=== PATIENT | female | born 1975 | race Caucasian/White ===

== ENCOUNTER 2020-09-24 03:52 | Observation (INO) | payer OTHER ==
[~2020-09-24] VITALS: Ht 157.5 cm; Wt 81.6 kg
--- NOTE | ~2020-09-24 | OP ---
[address] [address] OPERATIVE REPORT Name: MEIRMYRNA Nguyen Room: [address] M.R.#: [id number] Admission: 09/24/20 Attend Phys: Beverly Odell MD Discharge: Date of : 75 Report #: [id number] THIS REPORT FOR: cc: DIANE - No family physician/PCP DIANE - No family physician/PCP Blake Whitney MD ~ DOC #: [id number] Blake Whitney MD DATE OF SURGERY: 09/25/2020 PREOPERATIVE DIAGNOSIS: A 4 mm distal right ureteral stone with hydronephrosis. POSTOPERATIVE DIAGNOSIS: A 4 mm distal right ureteral stone with hydronephrosis. PROCEDURE PERFORMED: Cystoscopy, right retrograde pyelogram, right ureteroscopy, holmium laser lithotripsy, ureteroscopic stone extraction, placement of right ureteral stent with attached string. STAFF SURGEON: Blake Whitney MD VARIOUS EXCEPTIONALITIES TEACHER: None. ANESTHESIA: General. ESTIMATED BLOOD LOSS: None. COMPLICATIONS: None. SPECIMENS: Left ureteral stone fragments. DRAINS: A 28 cm x 4.8-Wallisian left ureteral stent. INDICATIONS FOR PROCEDURE: The patient is a pleasant 44-year-old white female who had history of kidney stone in the past, who developed rather severe left flank pain yesterday morning, presented to [facility] where a CT scan documented a 4 mm proximal left ureteral stone, some hydronephrosis. She was admitted for pain control. She did have nausea and vomiting. Denied any fevers, chills, nausea or vomiting. She was still having pain this morning and this afternoon. She has not documented any passing the stone. She was counseled regarding treatment options, elected for definitive cystoscopy, left retrograde pyelogram, left ureteroscopy, possible holmium laser lithotripsy, possible placement of left ureteral stent. After the risks and benefits of the procedure were explained, an informed consent was obtained. DESCRIPTION OF PROCEDURE: The patient was [place] [address] OPERATIVE REPORT Name: MYRNA WORLEY Room: [address]#: [id number] Admission: 09/24/20 Attend Phys: Beverly Odell MD Discharge: Date of : 75 Report #: [id number] comfortably placed in the dorsal lithotomy position under adequate general anesthesia. She was sterilely prepped and draped in standard fashion exposing only the genitalia. She was up to date on antibiotic therapy. Appropriate time-out was carried out and all were in agreement. A 22-Wallisian cystoscope with the obturator in place was blindly inserted into the urethra. Obturator was removed, draining clear ayse colored urine. Bladder was systematically viewed. Both ureteral orifices identified normal. No bladder calculi seen or foreign bodies observed. An 8-Wallisian cone-tipped catheter placed in the left ureteral orifice and retrograde pyelogram showing a normal caliber ureter to about 4 cm up to the ureterovesical junction. There was also some dilation down to this level, some tortuosity in the ureter more proximal. 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 No significant renal pelvis present. An 0.035 Glidewire was placed up to the left ureter at the level of kidney. The cystoscope was removed and a 4.5 Wallisian tapered to a 6.5-Wallisian Goetz semi-rigid ureteroscope advanced through the urethra into the left ureter. I did identify a stone in the distal ureter, grasped the stone with a 2.4 Wallisian flat wire basket, brought down to the ureterovesical junction began to meet resistance, went ahead and dislodged the stone out of the basket, leaving it in place. The basket was extracted, 272 micron holmium laser fiber set at 6.4 cuevas to fragment the stone into three separate fragments. Now these were individually grabbed with a 2.4 Wallisian flat wire basket and sequentially gently removed out without difficulty. Repeat ureteroscopy showed no sign of damage to the ureter. No residual fragments remained in the ureter. The semirigid scope was removed. A 28 cm x 4.8 Wallisian ureteral stent was put in place. Due to not having renal pelvis, coiled the tip of the stent into the compound upper pole calyx and good coil in the bladder. Bladder was drained, cystoscope was removed. String was left attached and secured to the outside of the labia with labia major, did place 20 mL of lidocaine jelly into her bladder. She tolerated the procedure extremely well. She was extubated in the operating room, transferred to [facility] with assistance and went to recovery in stable condition. May remove the stent on Thursday. If she is having trouble, could remove it early this Thursday. We will see her back in our office in 6 weeks with a renal ultrasound. Blake VARGHESE/SHIMON By: [id number] Tra Whitney MD /gema
[~2020-09-24 03:52] MED LIST: NOHOMEMEDICATIONS; VICODIN 5-5001 EACH PO
[2020-09-24 04:00] VITALS: BP 101/69
[2020-09-24 04:33] LABS: URINE BLOOD 3+ (Negative); URINE CLARITY CLOUDY; URINE GLUCOSE-RANDOM NEGATIVE (Negative); URINE KETONES NEGATIVE (Negative); URINE LEUKOCYTES-REFLEX NEGATIVE (Negative); URINE NITRITE-REFLEX NEGATIVE (Negative); URINE PROTEIN 1+ (Negative); URINE SPECIFIC GRAVITY >= 1.030 (1.005-1.030); URINE UROBILINOGEN 0.2 E.U./dl (0.2-1.0)
[2020-09-24 04:36] LABS: URINE BILIRUBIN 1+ (Negative); URINE COLOR AMBER
[2020-09-24 04:40] LABS: ABSOLUTE BASOPHILS 0.1 thou/uL (0.0-0.2); ABSOLUTE EOSINOPHILS 0.1 thou/uL (0.0-0.7); ABSOLUTE LYMPHOCYTES 1.4 thou/uL (0.8-5.3); ABSOLUTE MONOCYTES 0.7 thou/uL (0.0-1.2); ABSOLUTE NEUTROPHILS 8.3 thou/uL (1.6-8.1); BASOPHILS 0.8 %; HEMOGLOBIN 13.2 gm/dL (12.0-15.0); LYMPHOCYTES 13.3 %; MCH 31.1 pg (26.0-34.0); MCHC 34.6 g/dL (28.0-37.0); MCV 89.7 fL (80.0-100.0); MONOCYTES 6.2 %; MPV 8.7 fl. (7.2-11.1); NUCLEATED RBCS 0 /100WBC; PLATELET COUNT* 238 thou/uL (150-400); POLYS 78.7 %; RBC 4.24 mil/uL (4.20-5.00); RDW-CV 13.6 % (10.5-14.5); WBC 10.5 thou/uL (4.0-11.0)
[2020-09-24 04:49] LABS: CALCIUM 8.7 mg/dL (8.5-10.1); POTASSIUM 3.9 mmol/L (3.5-5.1)
[2020-09-24 05:25] LABS: CASTS None Seen /LPF (None Seen); CRYSTALS None Seen /LPF (None Seen); ICTOTEST (BILI CONFIRMATORY) Negative (Negative); MUCUS 4-6 Moderate strn/LPF (None Seen); SQUAMOUS 0-3 Few /LPF (0-3); URINE RBC >20 Many /HPF (0-2); URINE WBC-REFLEX 0-5 Rare /HPF (0-5)
--- NOTE | 2020-09-24 09:17 | NUR ---
PT EATING BREAKFAST.
[2020-09-24 10:06] VITALS: BP 114/74
[2020-09-24 14:14] VITALS: BP 122/75
[2020-09-24 14:30] VITALS: BP 122/75
[2020-09-24 14:50] VITALS: BP 120/71
--- NOTE | 2020-09-24 15:42 | NUR ---
PATIENT TRANSFERED TO FLOOR VIA STRETCHER ACCOMPANIED BY NURSE AND . PATIENT ORIENTED TO ROOM AND FLOOR. ADMISSION DATA BASE DONE. PATIENT STATED THAT SHE WOKE UP LAST NIGHT WITH STABBING PAIN TO ABDOMEN. SHE STATES THAT AT THIS TIME HER PAIN IS 2/10. DISCUSSED PAIN MANAGEMENT AND WHEN TO ASK FOR PAIN MEDICAIONS. VITAL SIGNS WNL. 20G IV TO LEFT AC, SALINE LOCK, PATENT. DRESSING C/D/I. ALL QUESTIONS AND CONCERNS ADDRESSED.
--- NOTE | 2020-09-24 17:37 | NUR ---
PATIENT RESTING IN BED. NO C/O PAIN/DISCOMFORT. CALL LIGHT WITHIN REACH. BED IN LOW/LOCKED POSITON. ALL QUESTIONS AND CONCERNS ADDRESSED.
[2020-09-24 20:00] VITALS: BP 121/86
[2020-09-25 04:28] LABS: CALCIUM 8.4 mg/dL (8.5-10.1); CREATININE 1.7 mg/dL (0.6-1.3); POTASSIUM 3.9 mmol/L (3.5-5.1)
[2020-09-25 04:36] LABS: HEMOGLOBIN 12.7 gm/dL (12.0-15.0); MCH 30.6 pg (26.0-34.0); MCHC 34.4 g/dL (28.0-37.0); MPV 8.5 fl. (7.2-11.1); RBC 4.16 mil/uL (4.20-5.00); RDW-CV 13.8 % (10.5-14.5); WBC 11.3 thou/uL (4.0-11.0)
--- NOTE | 2020-09-25 04:40 | NUR ---
RECEIVING FENTANYL FOR PAIN, NO REPORTS OF ANY NAUSEA. URINE STRAINED ALL SHIFT. SHE IS ALERT AND ORIENTED, ROOM AIR. UROLOGY CONSULTED. SHE HAS BEEN NPO SINCE MIDNIGHT. RECEIVED ALL MEDS SCHEDULED.
[2020-09-25 07:40] VITALS: BP 111/82
--- NOTE | 2020-09-25 12:16 | NUR ---
Pt is A&O. Resides at home with . Independent. No DME. No hx of HH or SNF. Goal is home at dc. Plan cysto and stent placement today. Anticipate dc post surgery. No needs.
--- NOTE | 2020-09-25 18:42 | NUR ---
PATIENT HAS REMAINED A&OX4, PLEASANT AND COOPERATIVE WITH CARES THIS SHIFT. URINE STRAINED PRIOR TO GOING TO PREOP. PATIENT REQUIRED PRN PAIN MEDICATION REGULARLY PRIOR TO SURGERY. PATIENT LEFT UNIT AT APPROX. 1530 TO GO TO PREOP, AND OF THE TIME OF THIS NOTE HAS YET TO RETURN TO UNIT.
--- NOTE | 2020-09-25 19:45 | NUR ---
PT RETURNING TO ROOM PER BED FROM CYSTOSCOPY ACCOMPANIED BY STAFF WITH CHART. PT DENIES PAIN OR PROBLEMS, STATES SHES HUNGRY. PT STATES SHE DOES NOT FEEL COMFORTABLE DISCHARGING HOME WITHOUT KNOWING IF PAIN WILL BE CONTROLLED AND SHE WILL BE ABLE TO TOLERATE FOOD AND DRINK AND VOIDING WITHOUT DIFFICULTY. FAMILY AT BEDSIDE. LAC SL IV. UP WITH ASSIST TO BATHROOM AND VOIDING 400ML PINK URINE. AM LABS ORDERED. CALL LITE IN EASY REACH. DENIES NEEDS AT PRESENT. WILL CONTINUE TO MONITOR AND PROVIDE CARES NEEDED.
[2020-09-25 20:45] VITALS: BP 126/72
[2020-09-26 00:37] VITALS: BP 122/77
[2020-09-26 04:00] VITALS: BP 118/72
[2020-09-26 04:35] LABS: CALCIUM 8.6 mg/dL (8.5-10.1); CREATININE 1.1 mg/dL (0.6-1.3); HEMATOCRIT 37.6 % (37.0-47.0); HEMOGLOBIN 12.9 gm/dL (12.0-15.0); MCH 30.7 pg (26.0-34.0); MCHC 34.3 g/dL (28.0-37.0); MCV 89.3 fL (80.0-100.0); MPV 8.6 fl. (7.2-11.1); POTASSIUM 4.4 mmol/L (3.5-5.1); RBC 4.21 mil/uL (4.20-5.00); RDW-CV 13.7 % (10.5-14.5); WBC 11.6 thou/uL (4.0-11.0)
--- NOTE | 2020-09-26 06:54 | NUR ---
PT SLEPT WELL OVERNIGHT SHE STATES. DENIES NEED FOR PAIN MED OVERNIGHT. TOLERATING HS FOOD BROUGHT IN BY FAMILY WITHOUT N/V. LAC SL. ROOM AIR. UP AD ALICIA IN ROOM. AM LAB. AOX4. ANTICIPATING DISCHARGE HOME TODAY. ABLE TO USE CALL LITE AND MAKE NEEDS KNOWN.
[2020-09-26 08:00] VITALS: BP 119/63; BP 123/53
[2020-09-26] MEDS ORDERED: LEVOFLOXACIN500 MG PO (14:10)
[2020-09-26 14:47] VITALS: BP 119/63
--- NOTE | 2020-09-26 15:05 | NUR ---
PT DISCHARGED HOME WITH ALL BELONGINGS ACCOMPANIED BY SPOUCE. SALINE LOCK REMOVED HUB INTACT. PT HAS GOOD UNDERSTANDING OF DISCHARGE INSTRUCTIONS. PT DISCHARGED HOME. PT DENIES PAIN ON DISCHARGE.
--- NOTE | 2020-09-28 17:07 | PATH ---
[address] [address] PATHOLOGY RPT PROCEDURE Name: LIANNA KAMINSKI Room: [address] Xenia Rod#: [id number] Admission: 09/24/20 Date of : 75 Discharge: 09/26/20 Report #: [id number] Path Case #: [id number] [facility] Accession Number: [id number] . 01 Material submitted: . ureter - LEFT URETERAL STONE. Modifiers: left . 01 Clinical history: . CYSTO W URETEROSCOPY,STONE MANIPULATION,STENT . 02 Diagnosis: Left ureteral stones: - Consistent with calculi. - The specimen is sent out for further processing. Report pending outside analysis with results to follow in an addendum. MBR 09/28/2020 1609 Local . 02 Electronically signed: . Clarke High MD, Pathologist NPI- [id number] . 01 Gross description: . The specimen is received fresh, labeled "Lianna Kaminski, left ureteral stones" are multiple brown stones measuring up to 0.3 cm for gross examination only. The specimen is forwarded to sendouts for further processing. ([facility]; 09/28/2020) RHEA/RHEA 09/28/2020 1607 Local . 02 Pathologist provided ICD-10: N20.1 . 02 CPT . 087770 Specimen Comment: A courtesy copy of this report has been sent to [phone], [phone] Specimen Comment: [phone] Specimen Comment: Report sent to / DR QUINTANILLA Performed at: [address], [place], [place] [id number] MD Hitesh Gamez MD Phone: [phone] Performed at: 02 [facility] [address], [place], [place] [id number] MD Clarke High MD Phone: [phone]
== END 2020-09-26 15:15 | disposition home or self-care (01) ==
LOC: M.ERS 03:52 → M.ORTHSURG 06:14 → M.TBA-ER 06:14 → M.ORTHSURG 14:39
PROVIDERS: Emergency Medicine; Internal Medicine; ADMIT Family Medicine; ATTEND Family Medicine
DX: N13.2 Hydronephrosis with renal and ureteral calculous obstruction (principal); Z20.822 Contact with and (suspected) exposure to COVID-19; N39.0 Urinary tract infection, site not specified; Z79.899 Other long term (current) drug therapy